=== PATIENT | male | born 1935 | race Caucasian/White ===

== ENCOUNTER 2016-11-22 16:11 | Emergency (ER) | payer MEDICARE, OTHER ==
[2016-11-22] MEDS ORDERED: Sodium Chloride 0.9% 1,000 ML IV SCH (16:30)
[2016-11-22] MEDS ORDERED: Ketorolac 30 MG/ML SDV IVPUSH ONE (16:30)
[2016-11-22] MEDS ORDERED: Ondansetron 4 MG/2 ML SDV IVPUSH ONE (16:34)
[2016-11-22] MEDS ORDERED: Ondansetron 4 MG/2 ML SDV ONE (16:34)
[2016-11-22 16:54] VITALS: BP 164/77
--- NOTE | 2016-11-22 17:42 | EDM.PDOC ---
[id number] 4d LEFT SIDE ABD PAIN Time Seen by Provider: 11/22/16 16:50 Source of Information: Reports: Patient, Family History Limitations: Reports: No limitations - History of Present Illness INITIAL COMMENTS - FREE TEXT/NARRATIVE: 81-year-old male arrives with acute pain in his lower abdomen and left flank. It started within the last 2 hours. He has nausea and vomiting. No fevers or chills, no previous symptoms. Onset: sudden Duration: Hour(s): (Within the last 2 hours) Location: Reports: abdomen (Left side), back Severity: severe Improves with: Reports: None Worsens with: Reports: None Associated Symptoms: Reports: nausea/vomiting. Denies: shortness of breath - Related Data Allergies Allergy/AdvReac Type Severity Reaction Status Date / Time atorvastatin calcium Allergy Other Verified 01/18/15 08:10 [From Lipitor] codeine Allergy Anaphylactic Verified 12/14/14 08:02 Shock influenza virus vaccine, Allergy Cannot Verified 12/14/14 08:02 specific Remember [Influenza Virus Vacc,Specific] perfumes Allergy Other Uncoded 01/18/15 08:10 Home Meds: Home Meds Finasteride [Proscar] 5 mg PO DAILY 04/19/14 [History] Pioglitazone HCl 30 mg PO ACBRKBED 04/19/14 [History] Simvastatin [Zocor] 80 mg PO DAILY 04/19/14 [History] Aspirin 1 tab PO 11/22/16 [History] Past Medical History Other HEENT History: wears glasses - Past Surgical History Other Musculoskeletal Surgeries/Procedures:: bilateral tendons replaced on knees Social & Family History - Tobacco Use Smoking Status *Q: Never Smoker Years of Tobacco use: 32 Second Hand Smoke Exposure: No - Alcohol Use Days Per Week of Alcohol Use: 0 - Recreational Drug Use Recreational Drug Use: No ED ROS GENERAL - Review of Systems Review Of Systems: See Below Constitutional: Denies: fever, chills HEENT: Reports: No symptoms Respiratory: Denies: Shortness of Breath Cardiovascular: Denies: Chest pain GI/Abdominal: Reports: Abdominal pain, Nausea, Vomiting Skin: Reports: no symptoms Neurological: Reports: No Symptoms Psychiatric: Reports: Anxiety ED EXAM, GENERAL - Physical Exam Exam: See Below Exam Limited By: No limitations General Appearance: alert, anxious, moderate distress Eye Exam: bilateral eye: normal inspection Respiratory/Chest: no respiratory distress, lungs clear GI/Abdominal: soft, non tender Neurological: alert, oriented Psychiatric: anxious Skin Exam: Warm, Dry Course - Vital Signs Last Recorded V/S: Last Vital Signs Temp 98.6 F 11/22/16 16:46 Pulse 58 L 11/22/16 16:46 Resp 15 11/22/16 16:46 BP 164/77 H 11/22/16 16:46 Pulse Ox 96 11/22/16 16:46 - Orders/Labs/Meds Orders: Active Orders 24 hr Category Date Time Status Abdomen Pelvis wo Cont [CT] Stat Exams 11/22/16 16:30 Taken Meds: Medications Discontinued Medications Generic Name Dose Route Start Last Admin Trade Name Freq PRN Reason Stop Dose Admin Sodium Chloride 1,000 mls @ 500 mls/hr 11/22/16 16:30 11/22/16 16:55 Normal Saline IV 500 mls/hr ASDIRECTED JEANE Administration Ketorolac Tromethamine 30 mg 11/22/16 16:30 11/22/16 16:54 Toradol IVPUSH 11/22/16 16:31 30 mg ONETIME ONE Administration Ondansetron HCl 4 mg 11/22/16 16:34 11/22/16 16:53 Zofran IVPUSH 11/22/16 16:35 4 mg ONETIME ONE Administration Ondansetron HCl Confirm 11/22/16 16:34 Zofran Administered 11/22/16 16:35 Dose 4 mg .ROUTE .STK-MED ONE - Re-Assessments/Exams Free Text/Narrative Re-Assessment/Exam: 11/22/16 17:40 This patient's symptoms appeared to be classic for a renal stone. 1 L of fluid was started, 30 mg of Toradol IV given, and the patient was sent back for a CT of his abdomen and pelvis without contrast. This confirmed a very small 1-2 mm distal left ureteral stone which likely has passed this patient's symptoms resolved. Patient was observed for another 30 minutes and symptoms did not return. He was given 6 hydrocodone to take home in case symptoms started returning, encouraged to drink a lot of water and return if needed. Departure - Departure Time of Disposition: 17:47 Disposition: Home, Self-Care 01 Condition: good Clinical Impression: Ureteric colic Instructions: Kidney Stones, [id number] Referrals: Artie Dennis PA-C [Primary Care Provider] - Forms: ED Department Discharge Care Plan Goals: Drink lots of water to prevent further stones from developing, take ibuprofen along with hydrocodone for pain if pain starts to recur and return anytime if worsening or concerns - My Orders Last 24 Hours: My Active Orders 11/22/16 16:30 Abdomen Pelvis wo Cont [CT] Stat - Assessment/Plan Last 24 Hours: My Active Orders 11/22/16 16:30 Abdomen Pelvis wo Cont [CT] Stat
== END 2016-11-22 17:47 | disposition home or self-care (01) ==
LOC: JP.ED 16:11
DX: N23 Unspecified renal colic (principal); Z88.5 Allergy status to narcotic agent; Z88.8 Allergy status to other drugs, medicaments and biological substances; Z91.048 Other nonmedicinal substance allergy status; Z79.899 Other long term (current) drug therapy; Z98.890 Other specified postprocedural states
CPT/HCPCS: 74176; 96361; 96374; 96375; 99284; J1885; J2405; J7040

== ENCOUNTER 2020-12-30 14:23 | Emergency (ER) | payer MEDICARE, OTHER ==
--- NOTE | 2020-12-30 14:42 | EDM.PDOC ---
ED HPI GENERAL MEDICAL PROBLEM - General Chief Complaint: Head Injury Stated Complaint: FELL HIT FOREHEAD AND RIGHT WRIST Time Seen by Provider: 12/30/20 15:00 Source of Information: Reports: Patient, Family History Limitations: Reports: No Limitations - History of Present Illness INITIAL COMMENTS - FREE TEXT/NARRATIVE: 85-year-old male was walking out of a local restaurant when he stumbled and tripped, scraping his right forehead and lateral eyebrow on the ground and jamming his right wrist into the ground as well. No loss of consciousness, no nausea or vomiting but is got a significant scrape on his right lateral forehead and pain in his wrist that he is concerned about. He is able to ambulate without difficulty, no visual concerns, no headache. His tetanus is current. Onset: Sudden Duration: Hour(s): (1 hour ago) Location: Reports: Head, Face, Upper Extremity, Right Associated Symptoms: Reports: No Other Symptoms, Other (Chronic back pain). Denies: Confusion, Chest Pain, Cough, Malaise, Nausea/Vomiting, Shortness of Breath, Weakness - Related Data Allergies Allergy/AdvReac Type Severity Reaction Status Date / Time atorvastatin calcium Allergy Other Verified 01/18/15 08:10 [From Lipitor] codeine Allergy Anaphylactic Verified 12/14/14 08:02 Shock influenza virus vaccine, Allergy Cannot Verified 12/14/14 08:02 specific Remember [Influenza Virus Vacc,Specific] perfumes Allergy Other Uncoded 01/18/15 08:10 Home Meds: Home Meds Pioglitazone HCl 30 mg PO ACBRKBED 04/19/14 [History] Simvastatin [Zocor] 80 mg PO DAILY 04/19/14 [History] Aspirin 1 tab PO DAILY 11/22/16 [History] Past Medical History Other HEENT History: wears glasses - Past Surgical History Other Musculoskeletal Surgeries/Procedures:: bilateral tendons replaced on knees ED ROS GENERAL - Review of Systems Review Of Systems: See Below Constitutional: Denies: Fever, Chills Respiratory: Denies: Shortness of Breath Cardiovascular: Denies: Chest Pain GI/Abdominal: Denies: Nausea, Vomiting Musculoskeletal: Reports: Back Pain, Other (Right wrist pain) Neurological: Reports: Other (See HPI) ED EXAM, HEAD INJURY - Physical Exam Exam: See Below Exam Limited By: No Limitations General Appearance: Alert, No Apparent Distress Head: Other (Patient has a 2 x 4 cm fairly deep abrasion above and to the right of the right eyebrow, but no laceration. A few very superficial abrasions around the cheeks bilaterally.) Eyes: Bilateral Eye: EOMI, Normal Inspection Neck: Non-Tender Respiratory: No Respiratory Distress Extremities: Other (Patient has ecchymosis around the knuckle of the middle finger on the right hand but no bony tenderness. He does have bony tenderness to palpation over the distal radius but no deformity.) Neurologic: No Motor/Sensory Deficits, Normal Mood/Affect, Oriented x 3 - Ian Coma Score Best Eye Response (Braham): (4) Open Spontaneously Best Verbal Response (Ian): (5) Oriented Best Motor Response (Ian): (6) Obeys Commands Course - Vital Signs Last Recorded V/S: Last Vital Signs Temp 97.6 F 12/30/20 14:56 Pulse 84 12/30/20 14:56 Resp 20 12/30/20 14:56 BP 170/61 H 12/30/20 14:56 Pulse Ox 95 12/30/20 14:56 - Orders/Labs/Meds Orders: Active Orders 24 hr Category Date Time Status Wrist Comp Min 3V Rt [CR] Stat Exams 12/30/20 15:09 Taken Meds: Medications Discontinued Medications Generic Name Dose Route Start Last Admin Trade Name Teri PRN Reason Stop Dose Admin Bacitracin 1 dose 12/30/20 15:08 12/30/20 15:16 Bacitracin Oint 1 Gm U/D Packet TOP 12/30/20 15:09 1 dose ONETIME ONE Administration - Re-Assessments/Exams Free Text/Narrative Re-Assessment/Exam: 12/30/20 17:19 An x-ray of the right wrist was obtained that shows no fracture. His tetanus is current. The deeper abrasion on his right forehead was covered with bacitracin and dressings were applied. Encouraged him to wrap his right wrist for support but there is no fracture, he should increase activity as tolerated. Departure - Departure Time of Disposition: 15:36 Disposition: Home, Self-Care 01 Clinical Impression: Scalp abrasion Qualifiers: Encounter type: initial encounter Qualified Code(s): S00.01XA - Abrasion of scalp, initial encounter Contusion of right wrist Qualifiers: Encounter type: initial encounter Qualified Code(s): S60.211A - Contusion of right wrist, initial encounter - Discharge Information Instructions: Hand Contusion, [id number], Abrasion, [id number] Referrals: PCP,None [Primary Care Provider] - Forms: ED Department Discharge Care Plan Goals: Increase activity as tolerated and keep wounds clean while healing. Return anytime if worsening or concerns. Sepsis Event Note (ED) - Focused Exam Vital Signs: Vital Signs Temp Pulse Resp BP Pulse Ox 12/30/20 14:56 97.6 F 84 20 170/61 H 95 12/30/20 14:51 97.6 F 84 20 170/61 H 95 - My Orders Last 24 Hours: My Active Orders 12/30/20 15:09 Wrist Comp Min 3V Rt [CR] Stat - Assessment/Plan Last 24 Hours: My Active Orders 12/30/20 15:09 Wrist Comp Min 3V Rt [CR] Stat
[2020-12-30 14:52] VITALS: BP 170/61; PULSE 84
[2020-12-30] MEDS ORDERED: Bacitracin Oint 1 GM U/D Packet TOP ONE (15:08)
--- NOTE | 2021-01-01 09:30 | CR ---
Wrist Comp Min 3V Rt CLINICAL HISTORY: Pain, fall FINDINGS: There is no acute fracture or dislocation within the right wrist. There is osteoarthritic change most prominent at the first and second carpometacarpal junctions. There is joint laxity at the first. Impression: No fracture. Moderate osteoarthritic change
== END 2020-12-30 15:35 | disposition home or self-care (01) ==
LOC: JP.ED 14:23
DX: S60.211A Contusion of right wrist, initial encounter (principal); S00.01XA Abrasion of scalp, initial encounter; S00.81XA Abrasion of other part of head, initial encounter; Z88.8 Allergy status to other drugs, medicaments and biological substances; Z88.5 Allergy status to narcotic agent; Z88.7 Allergy status to serum and vaccine; Z91.048 Other nonmedicinal substance allergy status; Z79.82 Long term (current) use of aspirin; Z79.899 Other long term (current) drug therapy; W01.0XXA Fall on same level from slipping, tripping and stumbling without subsequent striking against object, initial encounter
CPT/HCPCS: 73110-26-RT; 73110-RT; 99282; 99283

== ENCOUNTER 2021-03-15 17:59 | Emergency (ER) | payer MEDICARE, OTHER ==
[2021-03-15] MEDS ORDERED: Ketorolac 10 MG Tab PO ONE (18:35)
[2021-03-15] MEDS ORDERED: Methocarbamol 500 MG Tab PO ONE (18:35)
--- NOTE | 2021-03-15 18:36 | EDM.PDOC ---
ED HPI GENERAL MEDICAL PROBLEM - General Chief Complaint: General Stated Complaint: MEDICAL VIA [facility] Time Seen by Provider: 03/15/21 18:00 Source of Information: Reports: Patient, EMS History Limitations: Reports: No Limitations - History of Present Illness INITIAL COMMENTS - FREE TEXT/NARRATIVE: Patient presents emergency room today status post a fall that occurred at home. Patient states that this morning he was gathering some trash on his back porch he states that his back porch does not have any rails and is about 2 feet off the ground he stepped off the side of the porch and fell onto his left side. Patient states that he initially laid there for a few minutes was a little dazed did not lose consciousness blackout pass out or hit his head he said he landed on his left side although he is not really sure exactly how he landed. Patient does state that he has left wrist pain as well as left rib cage and discomfort. He states he did okay was able to get up took his to [facility] as she is scheduled then went on out to the [facility] to dispose of the trash she had been gathering him back picked up his at the [facility] and when on home said he was able to help his get out of the car get back into the house but then after that he had increasing pain and muscle spasm and was not able to do anything he says that around 1:00 is when he noticed all of that because of the continued pain and discomfort he called EMS to come to the emergency room for further evaluation. Of note patient has a resolving ecchymosis to his right forehead he states that he fell off the stool at [place] [employer] couple weeks ago and he was seen at that time for that issue she states that pain is approximately 6-8 out of 10 with movement at rest he says that is markedly improved although not gone away completely he does not want to use his left upper extremity. PMH--DM2 (no insulin), HLP, GERD, Obesity, hx TIAs, history of benign positional vertigo Meds--pioglitazone omeprazole simvastatin and aspirin Allergies--Lipitor codeine influenza vaccine and perfumes Tob--former EtOH/Drug--denies COVID immunization--second dose received in November 2020 Onset: Today Onset Date: 03/15/21 Onset Time: 11:00 Left Wrist Pain Score (Numeric/FACES): 3 Left Thoracic Pain Score (Numeric/FACES): 3 - Related Data Allergies Allergy/AdvReac Type Severity Reaction Status Date / Time atorvastatin calcium Allergy Other Verified 03/15/21 18:14 [From Lipitor] codeine Allergy Anaphylactic Verified 03/15/21 18:14 Shock influenza virus vaccine, Allergy Cannot Verified 03/15/21 18:14 specific Remember [Influenza Virus Vacc,Specific] perfumes Allergy Other Uncoded 03/15/21 18:14 Home Meds: Home Meds Pioglitazone HCl 30 mg PO ACBRKBED 04/19/14 [History] Simvastatin [Zocor] 80 mg PO DAILY 04/19/14 [History] Aspirin 1 tab PO DAILY 11/22/16 [History] Omeprazole 40 mg PO ASDIRECTED PRN 03/15/21 [History] Past Medical History Other HEENT History: wears glasses - Past Surgical History Musculoskeletal Surgical History: Reports: Other (See Below) Other Musculoskeletal Surgeries/Procedures:: bilateral tendons replaced on knees Social & Family History - Tobacco Use Tobacco Use Status *Q: Former Tobacco User Used Tobacco, but Quit: Yes Month/Year Tobacco Last Used: 1982 - Caffeine Use Caffeine Use: Reports: None - Recreational Drug Use Recreational Drug Use: No ED ROS GENERAL - Review of Systems Review Of Systems: Comprehensive ROS is negative, except as noted in HPI. Constitutional: Reports: No Symptoms HEENT: Reports: No Symptoms Respiratory: Reports: No Symptoms Cardiovascular: Reports: No Symptoms GI/Abdominal: Reports: No Symptoms Musculoskeletal: Reports: Shoulder Pain, Arm Pain, Hand Pain, Muscle Stiffness Skin: Reports: Wound (skin tear left elbow/forearm area) Neurological: Reports: No Symptoms ED EXAM, GENERAL - Physical Exam Exam: See Below Exam Limited By: No Limitations General Appearance: Alert, WD/WN, Moderate Distress Eye Exam: Bilateral Eye: EOMI, Normal Inspection, PERRL Ears: Normal External Exam Nose: Normal Inspection Throat/Mouth: Normal Inspection, Normal Voice, No Airway Compromise Head: Atraumatic, Normocephalic, Other (Has noted resolving ecchymosis on the right forehead area from a previous fall couple weeks ago) Neck: Normal Inspection, Supple, Non-Tender, Full Range of Motion Respiratory/Chest: No Respiratory Distress, Lungs Clear, Normal Breath Sounds. No: Chest Non-Tender (With noted anterior left and left lateral chest wall tenderness to palpatory exam) Cardiovascular: Normal Peripheral Pulses, Regular Rate, Rhythm, No Murmur Peripheral Pulses: 2+: Radial (L), Radial (R) GI/Abdominal: Normal Bowel Sounds, Soft, Non-Tender, Other (Noted for morbid abdominal obesity). No: No Distention (Male) Exam: Deferred Rectal (Males) Exam: Deferred Back Exam: Normal Inspection, Full Range of Motion, Other (Patient with left- sided scapula tenderness to palpatory exam). No: Paraspinal Tenderness, Vertebral Tenderness Extremities: Normal Capillary Refill, Joint Swelling (Left wrist swelling decreased motion as well as noted tenderness), Limited Range of Motion (Left shoulder and wrist elbow on the left side is without any restriction in motion no pain or discomfort) Neurological: Alert, Oriented, CN II-XII Intact, Normal Cognition, No Motor/Sensory Deficits Psychiatric: Normal Affect, Normal Mood Skin Exam: Warm, Dry, Normal Color, Other (Skin tear to left elbow forearm area approximately 2 cm in size) Course - Vital Signs Text/Narrative:: 1918--many readings of plain films to include rib series there is no acute rib fracture noted no pneumothorax is noted, left shoulder there is no fracture or dislocation noted, left wrist there is sclerotic changes versus a distal radius avulsion fracture. Final radiology reading of these films are pending at this time 1919--discussed with patient's today's ER findings to include recommendation for anti-inflammatory ice or heat as he finds comfortable and muscle relaxants. Will place a left wrist splint if Velcro wrist splint is available we will utilize that otherwise we will fabricate one in the emergency room today. Patient verbalized understanding regarding films in the radiology will follow up with a final reading which may change any plan of care. It is recommended that he follow-up with his primary care provider in the next 2 to 3 days in regards to these films and any ongoing care needs. He may want to call tomorrow to his primary care provider to find out final radiology report before the weekend. Skin tear care will include antibiotic ointment and cover with a nonstick bandage or dressing recommend limited use of adhesive bandages secondary to further skin tear proper probability. Did discuss with patient care on his porch may want to have railings put up to decrease further fall potential durations patient verbalized understanding agreement will be ready for discharge shortly Last Recorded V/S: Last Vital Signs Temp 97.9 F 03/15/21 18:12 Pulse 87 03/15/21 18:12 Resp 20 03/15/21 18:12 BP 178/79 H 03/15/21 18:12 Pulse Ox 97 03/15/21 18:12 - Orders/Labs/Meds Orders: Active Orders 24 hr Category Date Time Status Ribs 3V wo Chest Lt [CR] Stat Exams 03/15/21 18:27 Taken Shoulder Comp Lt [CR] Stat Exams 03/15/21 18:25 Taken Wrist Comp Min 3V Lt [CR] Stat Exams 03/15/21 18:26 Taken Meds: Medications Discontinued Medications Generic Name Dose Route Start Last Admin Trade Name Teri PRN Reason Stop Dose Admin Ketorolac Tromethamine 10 mg 03/15/21 18:35 Ketorolac 10 Mg Tab PO 03/15/21 18:36 ONETIME ONE Methocarbamol 1,000 mg 03/15/21 18:35 Methocarbamol 500 Mg Tab PO 03/15/21 18:36 ONETIME ONE Departure - Departure Time of Disposition: 19:34 Disposition: Home, Self-Care 01 Clinical Impression: Fall (on) (from) other stairs and steps, initial encounter, Contusion of rib on left side, Contusion of left shoulder, initial encounter, Wrist contusion, Left wrist injury, Skin tear of left elbow without complication, Hypertension - Discharge Information *PRESCRIPTION DRUG MONITORING PROGRAM REVIEWED*: Not Applicable *COPY OF PRESCRIPTION DRUG MONITORING REPORT IN PATIENT FRANTZ: Not Applicable Instructions: Skin Tear, [id number], Fall Prevention in the Home, Adult, Contusion, [id number], How to Use Cold Therapy Referrals: PCP,None [Primary Care Provider] - Forms: ED Department Discharge Additional Instructions: You may use over the counter naproxen (Alleve) as per label, additional measures include ice or heat as you find helpful, athletic rubs such as marium- molina/biofreeze/icy hot/aspercream. You may want to try Salonpas (lidocaine patches) available over the counter to left rib area for pain--wear patch(s) for 12 hours then remove for 12 hours Skin tear should be covered with antibiotic ointment and nonstick dressing (avoid adhesive tapes/bandages as this may cause further skin damage)-but wrap with kerlex or coban--ensure to remove dressing daily for bathing and re-dress afterward Wear left wrist splint until otherwise directed by family doctor in ER follow up care--may remove for shower/bathing Follow up tomorrow with your family doctor regarding radiology final results and ER follow up care Sepsis Event Note (ED) - Evaluation Sepsis Screening Result: No Definite Risk - Focused Exam Vital Signs: Vital Signs Temp Pulse Resp BP Pulse Ox 03/15/21 18:12 97.9 F 87 20 178/79 H 97 - My Orders Last 24 Hours: My Active Orders 03/15/21 18:25 Shoulder Comp Lt [CR] Stat 03/15/21 18:26 Wrist Comp Min 3V Lt [CR] Stat 03/15/21 18:27 Ribs 3V wo Chest Lt [CR] Stat - Assessment/Plan Last 24 Hours: My Active Orders 03/15/21 18:25 Shoulder Comp Lt [CR] Stat 03/15/21 18:26 Wrist Comp Min 3V Lt [CR] Stat 03/15/21 18:27 Ribs 3V wo Chest Lt [CR] Stat
[2021-03-15 19:16] VITALS: BP 181/77; PULSE 92
--- NOTE | 2021-03-16 09:08 | CR ---
Shoulder Comp Lt, Ribs 3V wo Chest Lt CLINICAL HISTORY: Fall FINDINGS: There is no acute fracture or dislocation in the left shoulder. There is some degenerative change in the AC joint Impression: No fracture or dislocation Ribs 3V wo Chest Lt CLINICAL HISTORY: Fall FINDINGS: There is a minimal cortical step-off of the lateral left sixth rib which is suspect for nondisplaced fracture. There is no pleural effusion or pneumothorax IMPRESSION: Suspect nondisplaced fracture left sixth rib
--- NOTE | 2021-03-16 09:10 | CR ---
Wrist Comp Min 3V Lt CLINICAL HISTORY: Fall FINDINGS: There is a fracture of the distal radius with articular surface involvement. 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
== END 2021-03-15 20:15 | disposition home or self-care (01) ==
LOC: JP.ED 17:59
DX: S51.012A Laceration without foreign body of left elbow, initial encounter (principal); S20.212A Contusion of left front wall of thorax, initial encounter; S40.012A Contusion of left shoulder, initial encounter; S60.212A Contusion of left wrist, initial encounter; I10 Essential (primary) hypertension; Z88.5 Allergy status to narcotic agent; Z88.8 Allergy status to other drugs, medicaments and biological substances; Z91.048 Other nonmedicinal substance allergy status; Z88.7 Allergy status to serum and vaccine; Z79.82 Long term (current) use of aspirin; Z87.891 Personal history of nicotine dependence; W17.89XA Other fall from one level to another, initial encounter; Y92.009 Unspecified place in unspecified non-institutional (private) residence as the place of occurrence of the external cause
CPT/HCPCS: 71101; 73030; 73110; 99283; 99284; A9270

== ENCOUNTER 2021-11-27 12:15 | Emergency (ER) | payer MEDICARE, OTHER ==
[2021-11-27 12:29] VITALS: BP 169/63; PULSE 91
[2021-11-27] MEDS ORDERED: Diphtheria,Pertussis(Acell),Tetanus Vaccine 0.5 ML Syringe IM ONE (13:06)
[2021-11-27] MEDS ORDERED: Lidocaine 1% with EPINEPHrine 1:100,000 50 ML MDV SUBCUT STA (13:06)
[2021-11-27] MEDS ORDERED: Bacitracin Oint 1 GM U/D Packet TOP ONE (13:06)
== END 2021-11-27 13:45 | disposition home or self-care (01) ==
LOC: JP.ED 12:15
DX: S61.411A Laceration without foreign body of right hand, initial encounter (principal); K21.9 Gastro-esophageal reflux disease without esophagitis; E78.00 Pure hypercholesterolemia, unspecified; E11.22 Type 2 diabetes mellitus with diabetic chronic kidney disease; N18.9 Chronic kidney disease, unspecified; Z87.891 Personal history of nicotine dependence; Z91.048 Other nonmedicinal substance allergy status; Z88.7 Allergy status to serum and vaccine; Z88.5 Allergy status to narcotic agent; Z88.8 Allergy status to other drugs, medicaments and biological substances; Z79.82 Long term (current) use of aspirin; Z23 Encounter for immunization; Z79.899 Other long term (current) drug therapy; W26.0XXA Contact with knife, initial encounter
CPT/HCPCS: 12002; 90471; 90715; 99281; 99282-25

== ENCOUNTER 2021-12-25 07:20 | Day surgery (SDC) | payer MEDICARE, OTHER ==
[2021-12-25] MEDS ORDERED: Dextrose 5%-Lactated Ringers 1,000 ML IV SCH (08:15)
[2021-12-25] MEDS ORDERED: Lactated Ringers 1,000 ML IV SCH (08:15)
[2021-12-25] MEDS ORDERED: Propofol 200 MG/20 ML SDV ONE (09:25)
[2021-12-25] MEDS ORDERED: fentaNYL 100 MCG/2 ML SDV ONE (09:25)
[2021-12-25 10:53] VITALS: BP 153/61; PULSE 60
== END 2021-12-25 10:56 | disposition home or self-care (01) ==
LOC: JP.SDS 07:20
PROVIDERS: ATTEND Family Medicine
DX: K52.9 Noninfective gastroenteritis and colitis, unspecified (principal); K64.4 Residual hemorrhoidal skin tags; E11.9 Type 2 diabetes mellitus without complications; I25.10 Atherosclerotic heart disease of native coronary artery without angina pectoris; E78.5 Hyperlipidemia, unspecified
CPT/HCPCS: J2704; J3010; J7120